=== PATIENT | female | born 1970 | race Caucasian/White ===

== ENCOUNTER 2020-05-02 13:57 | Inpatient (IN) | payer MEDICARE, MEDICAID ==
[~2020-05-02] VITALS: Ht 165.1 cm; Wt 74.4 kg
--- NOTE | ~2020-05-02 | EEG ---
[address] [address] EEG STUDY REPORT Name: KAI PICKETT Room: [address] IN ..#: [id number] Admission: 05/02/20 Attend Phys: Fiorella Schulz MD Discharge: Date of : 68 Report #: [id number] THIS REPORT FOR: //name// CC: Fiorella Schulz [facility] Physician staff DATE OF SERVICE: 05/06/2020 This patient is being evaluated for the possibility of seizure. EEG was done by placing the electrode by standard 10/20 system of electrode placement. Both referential and sequential montages were used for recording. Background activity in this patient's EEG is about 5-6 Hz and 30 microvolt, The patient's photic stimulation is unremarkable. No active epileptiform activity was noticed. IMPRESSION: This is a severely abnormal EEG because it is disorganized and poorly formed. That is a nonspecific finding, which can occur with encephalopathy, effect of psychotropic medication, dementia, etc. However, no active epileptiform activity was noticed during this record. Thank you very much for this referral. By: [id number] Julien MD /nt
--- NOTE | ~2020-05-02 | CON ---
[address] [address] CONSULTATION Name: KAI PICKETT Room: [address] ADM IN M.R.#: [id number] Admission: 05/02/20 Attend Phys: Fiorella Schulz MD Discharge: Date of : 68 Report #: [id number] THIS REPORT FOR: //name// cc: Physician not on staff Physician not on staff ~ THIS REPORT FOR: //name// DATE OF SERVICE: 05/04/2020 HISTORY OF PRESENT ILLNESS: This is a 49-year-old female patient who is unable to provide any history. I initially talked to Dr. Schulz and reviewed the records. Subsequently, I talked to the durable power of workers compensation attorney who does not know the medical history, but she gave a number for the group insurance special agent and the nurses had that number and I was able to call and get some medical history from her. She has known this patient for 13 years. The patient apparently has intractable seizure disorder. She also has mental retardation, but it is not clear what the etiology is. She does not have a family and she is a state appointed a durable power of workers compensation attorney as I understand. She got 35 seizures last year. The seizures were where her eyes were rolled up and she will shake some in and she will become more confused and lethargic for rest of the day. She followed up with Dr. Rodriges, a neurologist at [place], [place], who recently retired. Neurology consultation was requested because initial impression was that the patient was on Topamax and she was not able to take the Topamax. When I talked to the supervisor channel process at a longterm she indicates that the patient is on a lot of medication. She confirmed that she is on all the seizure medications. She says that the patient take Dilantin 300 mg alternating with 400 mg. She takes Onfi 10 mg b.i.d. She takes lamotrigine 600 mg b.i.d., which is a pretty big dose. She takes Keppra 2000 mg p.o. b.i.d., which is again a pretty good dose. She take Topamax 300 mg b.i.d. She also takes lorazepam 1 mg t.i.d. on a regular basis. She confirmed it is not p.r.n. and it is on a regular basis. She got rectal Valium intermittently when she gets seizure. She is admitted with GI issues like ileus and she has a severe urinary tract infection. Her temperature is still running high, urinalysis as indicated more than 25 wbc. She has a prior history of mental retardation. She has recently a diagnosis of COVID and her seizure frequency has increased and she has been more lethargic. She also has hypoxemia. Thus the 14-point review of system I can get. PAST MEDICAL HISTORY: Positive for seizure and mental retardation. She also has ileus. FAMILY HISTORY: Unavailable. SOCIAL HISTORY: She lives in a longterm. [address] [address] CONSULTATION Name: KAI PICKETT Room: [address] IN [facility]#: [id number] Admission: 05/02/20 Attend Phys: Fiorella Schulz MD Discharge: Date of : 68 Report #: [id number] PHYSICAL EXAMINATION: Very limited. She did not open her eyes for me. She followed no commands for me. I could not look at the patient's fundus, I could not elicit any reflex and she did not move anything. There is no meningeal sign in this patient. There are no carotid bruits. Blood pressure is 153/82, respirations 21, pulse is 83, temperature is 102. LABORATORY DATA: White count is normal. GFR is 131. IMPRESSION: Multiple things need to be addressed in this patient. She is on numerous seizure medication and her seizure regimen has to be simplified. That needs to be done as an outpatient by her neurologist because changing in acute stage of illness is not a very good thing to do. The problem is many of those medications does not come in p.o. form. If Dobhoff can be put in then that will be desirable part to do. I will suggest talking to the GI and if they allow a Dobbhoff tube and medication by Dobbhoff, the best will be to put Dobbhoff until she is able to swallow. She is on so much medication that the best will be to do that because only few of them can be give IV. But her anticonvulsant polypharmacy need to be simplified and I will suggest that she sees an epileptologist after that. Presently, there is no sign for meningeal infection, but that she needs to be watched closely. 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 I will suggest checking a CT scan sometime to make sure no pathology has appeared. I spent about 50 minutes of time taking care of this patient and majority was spent coordinating her care and I talked to multiple professionals and other members including group homes to coordinate the care. By: 1401 [id number] Julien MD /lashell
--- NOTE | ~2020-05-02 | EMS ---
[place] [address] EMS Patient Care Report Name: KAI PICKETT Room: [address] IN ..#: [id number] Admission: 05/02/20 Attend Phys: Fiorella Schulz MD Discharge: Date of : 68 Report #: [id number] THIS REPORT FOR: //name// Report Transmitted: 05/02/2020 21:47 EMS Care Summary [facility] [id number] @ 05/02/2020 12:41 Incident [address] [place] [address] Patient KAI PICKETT Female, 49 Years 1970 Patient [address] [place] [address] Patient History Seizures,Pervasive Developmental Disorder, Patient Allergies Iodine, Patient Medications Other, Vitamin B12, Vitamin D, Ativan, Fosamax, Levothyroxine, Dilantin, Rehana, Keppra, Aspirin, Lamictal, Tylenol, Diazepam, Nystatin, Risperdal, Chief Complaint No verbal complaints, patient is lethargic Disposition Transported No Lights/[place] Dis[place] Reason Altered Mental Status Transported To [facility] Narrative Dispatched Med Unit 1, emergency response for COVID 19 positive patient that is lethargic and [place] [address] EMS Patient Care Report Name: KAI PICKETT Room: [address] IN [facility]#: [id number] Admission: 05/02/20 Attend Phys: Fiorella Schulz MD Discharge: Date of : 68 Report #: [id number] Chief Complaint: This 48 year old female patient presents conscious and alert to loud verbal and firm touching stimuli. Patient is usually very active and verbal. Patient was found today to be lethargic, difficult to arouse, and displaying decreased oxygen saturations per staff. Patient is in well kept room with several staff member present. Full COVID PPE in use by staff and by EMS. History of Present Illness: Patient is a resident at a local [facility] assisted home. Patient has severe developmental and cognitive disabilities. Staff reports that the patient is usually very active and mobile in her wheel chair. She has been increasingly lethargic today with inability to get typical arousal from her. She also was reported to have low oxygen saturation (88%). She has tested positive for the pryor-virus as the other two residents and a staff member. She has reported to have a cough over the last several days but no report fever. It is uncertain if smell and taste has been affected. Assessment: Initial Exam: Airway is patent. Breathing is spontaneous with no evident dyspnea. CBBS, no wheeze or rhonchi appreciated. Circulation is strong and regular. Skin is warm, dry, pale. Dry mucosa. Patient is lethargic, responds to movement and loud verbal. Patient displays no evident life threats. Secondary Exam: As noted in ASSESSMENT SECTION. Reason for ambulance transport: Patient requires transport for care of hypoxemia and related COVID-19 concerns. Treatment: Assessment was provided : Patient was transferred to wheel chair and then out to front room to load onto the cot. Patient was secured to cot and removed to ambulance. Oxygen was placed using capnographic cannula. EKG placed showing NSR. IV established 20g, left forearm 500 ml LR infused over transport time. Blood sugar obtained. Report provided in advance. Summary: Patient tolerated trip well, she became more verbal, asking questions and making simple statements like she was "hungry." She remained cooperative enroute and displayed no evidence of distress. Patient continued to wear oxygen and a surgical mask and displayed saturation levels between 95% and 98% on 3lpm. Waveforms were non-obstructive. Patient was released to ED without delay or incident. Report provided in person. END OF REPORT. Initial Vitals @13:15P: 88,R: 20,BP: 130/72,GCS: 13,Temp: 98.7F,Glucose: 90,SpO2: 93,Revised Trauma: 12,MD Suspected: false @12:59P: 84,R: 20,BP: 136/70,GCS: 14,EtCO2: 39,SpO2: 97,Revised Trauma: 12,MD Suspected: [place] [address] EMS Patient Care Report Name: KAI PICKETT Room: [address] ADM IN M.R.#: [id number] Admission: 05/02/20 Attend Phys: Fiorella Schulz MD Discharge: Date of : 68 Report #: [id number] @13:30R: 20,BP: 126/77,GCS: 14,EtCO2: 38,SpO2: 97,Revised Trauma: 12,MD Suspected: false Assessments @12:51MENTAL:No Abnormalities,SKIN:Pale,HEENT:Eyes: Left Pupil: 3-mm,Eyes: Right Pupil: 3-mm,Head/Face: No Abnormalities,Neck/Airway: No Abnormalities,LUNG SOUNDS:General: Other,Right Upper: Distension,Left Upper: Distension,Left Lower: Distension,Right Lower: Distension,ABDOMEN:General: Other,Right Upper: Distension,Left Upper: Distension,Left Lower: Distension,Right Lower: Distension,PELVIS//GI:EXTREMITIES:Capillary Refill: Left Upper: < 2 Sec,Left Arm: No Abnormalities,Right Arm: No Abnormalities,Left Leg: No Abnormalities,Right Leg: No Abnormalities,PULSE:Radial: 2+ Normal,NEURO:No Abnormalities, Impression COVID-19 - Confirmed by testing Procedures @12:52ALS Assessment@12:59Surgical Mask on PatientResponse: Unchanged@13:05Lactated Ringers 500cc (20 ga) Site: Forearm-LeftResponse: UnchangedSucceeded@12:573-Lead ECGResponse: UnchangedSucceeded Timeline 12:41,Call Received 12:41,Dispatched 12:45,En Route 12:49,On Scene 12:51,At Patient 12:52,ALS Assessment, 12:57,3-Lead ECG,Response: UnchangedSucceeded, 12:59,Surgical Mask on Patient,Response: Unchanged 12:59,BP: 136/70 M,PULSE: 84,RR: 20 R,SPO2: 97 Ox,ETCO2: 39 ,BG: ,PAIN: ,GCS: 14, 13:05,Lactated Ringers 500cc 20 ga Site: Forearm-Left,Response: UnchangedSucceeded, 13:10,Depart Scene 13:15,BP: 130/72 M,PULSE: 88,RR: 20 R,SPO2: 93 Ox,ETCO2: ,B,PAIN: ,GCS: 13, 13:30,BP: 126/77 M,PULSE: ,RR: 20 R,SPO2: 97 Ox,ETCO2: 38 ,BG: ,PAIN: ,GCS: 14, 13:49,At Destination 14:57,Call Closed Disclaimer v1.1 Copyright 2020 [employer] This EMS Care Summary contains data elements from the applicable legal record (which may be displayed differently). It [place] [address] EMS Patient Care Report Name: KAI PICKETT Room: [address] IN [facility]#: [id number] Admission: 05/02/20 Attend Phys: Fiorella Schulz MD Discharge: Date of : 68 Report #: [id number] information for the following purposes: continuity of care, clinical quality, and state data reporting. The complete legal record is available to ED staff and administrators of the receiving hospital in [employer]'s Patient Tracker. All data is provided "as is."
--- NOTE | ~2020-05-02 | CON ---
[address] [address] CONSULTATION Name: KAI PICKETT Room: [address] IN M.R.#: [id number] Admission: 05/02/20 Attend Phys: Fiorella Schulz MD Discharge: Date of : 68 Report #: [id number] THIS REPORT FOR: //name// cc: Physician not on staff Physician not on staff ~ THIS REPORT FOR: //name// CC: Fiorella [place] Physician staff DICTATED BY: Taylor Cotto [facility] DATE OF SERVICE: 05/04/2020 PRIMARY CARE PHYSICIAN: Unknown. Please note at the time of this dictation, the patient was seen and physically examined by myself. REASON FOR CONSULTATION: Ileus and constipation. HISTORY OF PRESENT ILLNESS: This is a 49-year-old female who is in a current nursing home that needs full assistance with her ADLs on a daily basis. She does have baseline intellectual impairment. She does not ambulate on her own. She uses a wheelchair most of the time. She is nonverbal. Apparently, she was found to be complaining of some shortness of air and prompted them to call EMS for further evaluation. The patient was tested positive for COVID and she is in isolation, unable to get any past medical history except that she does take oral intake very poorly and most of her pills are crushed and she has to be asked to drink, she does not initiate any of that on her own. ALLERGIES: CONTRAST DYE AND IODINE. MEDICATIONS: From facility is topiramate, calcium, Risperdal, alendronate, aspirin, fexofenadine, levothyroxine, Linzess, vitamin B12, Fleet's enema, Ativan, lorazepam, and Tylenol. PAST MEDICAL HISTORY: Seizure disorder, history of choking, she is disabled and mentally challenged. PAST SURGICAL HISTORY: Negative. FAMILY HISTORY: Noncontributory. SOCIAL HISTORY: She lives in a nursing home and needs a 24[place] [address] CONSULTATION Name: KAI PICKETT Room: [address] IN [facility].#: [id number] Admission: 05/02/20 Attend Phys: Fiorella Schulz MD Discharge: Date of : 68 Report #: [id number] Denies any alcohol, tobacco or illegal drug use. REVIEW OF SYSTEMS: Twelve-point review of system is noted from the chart. PHYSICAL EXAMINATION: VITAL SIGNS: Temperature 37.3, pulse 82, respirations 18, blood pressure 134/80. HEART: Regular rate and rhythm. LUNGS: Diminished bilaterally. ABDOMEN: Soft, positive bowel sounds in all 4 quadrants with no masses or tenderness noted. NEUROLOGIC: The patient does not respond to verbal stimulation or painful stimulation, kept her eyes closed throughout the entire exam. RADIOLOGICAL DATA: Abdominal x-ray showed diffuse moderate ileus. CT scan shows prominent distention of the colon with air and fluid extending throughout the colon and into the rectum measuring up to 5.5 cm in size without any definite wall thickening. IMPRESSION: 1. Ileus. 2. Constipation. 3. Seizure disorder. 4. Shortness of air. 5. Positive for COVID. 6. Intellectual impairment. PLAN: 1. Continue her Dulcolax suppositories daily. 2. Continue her Reglan 5 mg a.c. and at bedtime. 3. We will add some MiraLax b.i.d. 4. Abdominal x-ray in a.m. 5. Further recommendations to be made after Dr. Moya sees the patient later today. Thank you for allowing us to participate in this patient's care. Please do not hesitate to call with any questions in regard to this consult. By: [id number] Moya MD /nt
[2020-05-02 14:00] VITALS: BP 114/62
[2020-05-02] MEDS ORDERED: CALCIUM500 M1 PO (14:13)
[2020-05-02] MEDS ORDERED: TOPAMAX100 MG PO (14:13)
[2020-05-02] MEDS ORDERED: FLEET ENEMA133 ML RECTAL (14:14)
[2020-05-02] MEDS ORDERED: ATIVAN1 M1 PO (14:14)
[2020-05-02] MEDS ORDERED: LORAZEPAM 2MG TA2 M1 PO (14:15)
[2020-05-02] MEDS ORDERED: RISPERDAL 1 MG T1 MG PO (14:15)
[2020-05-02] MEDS ORDERED: TYLENOL EXTRA500 MG PO (14:15)
[2020-05-02] MEDS ORDERED: ALLER-EASE180 MG PO (14:16)
[2020-05-02] MEDS ORDERED: ASA81BEC PO (14:16)
[2020-05-02] MEDS ORDERED: LEVO-T100 MCG PO (14:16)
[2020-05-02] MEDS ORDERED: BINOSTO70 MG PO (14:16)
[2020-05-02] MEDS ORDERED: LINZESS290 MCG PO (14:17)
[2020-05-02] MEDS ORDERED: VITAMIN B125000 MCG PO (14:17)
[2020-05-02 15:08] LABS: BE -3.6 mmol/L (-2 to +3); PCO2 39.8 mmHg (35.0-45.0); PO2 70.7 mmHg (75.0-100.0); pH 7.353 (7.340-7.450)
[2020-05-02 15:11] LABS: ABSOLUTE EOSINOPHILS 0.1 thou/uL (0.0-0.7); ABSOLUTE LYMPHOCYTES 1.7 thou/uL (0.8-5.3); ABSOLUTE MONOCYTES 0.8 thou/uL (0.0-1.2); ABSOLUTE NEUTROPHILS 2.9 thou/uL (1.6-8.1); BASOPHILS 0.4 %; EOSINOPHILS 1.2 %; HEMATOCRIT 36.4 % (37.0-47.0); LYMPHOCYTES 30.5 %; MCH 32.5 pg (26.0-34.0); MCHC 32.9 g/dL (28.0-37.0); MCV 98.8 fL (80.0-100.0); MONOCYTES 14.2 %; MPV 6.3 fl. (7.2-11.1); NUCLEATED RBCS 0 /100WBC; PLATELET COUNT* 281 thou/uL (150-400); POLYS 53.7 %; RBC 3.68 mil/uL (4.20-5.00); RDW-CV 13.7 % (10.5-14.5); WBC 5.5 thou/uL (4.0-11.0)
[2020-05-02 15:19] LABS: CALCIUM 7.7 mg/dL (8.5-10.1); CREATININE 0.7 mg/dL (0.6-1.3); POTASSIUM 3.5 mmol/L (3.5-5.1)
[2020-05-02 15:23] LABS: MAGNESIUM 1.9 mg/dL (1.8-2.4); TOTAL BILIRUBIN 0.1 mg/dL (<0.1-1.0); TOTAL PROTEIN 7.8 g/dL (6.4-8.2)
[2020-05-02 15:40] LABS: URINE BILIRUBIN NEGATIVE (Negative); URINE BLOOD TRACE (Negative); URINE CLARITY CLEAR; URINE COLOR YELLOW; URINE GLUCOSE-RANDOM NEGATIVE (Negative); URINE KETONES NEGATIVE (Negative); URINE NITRITE-REFLEX NEGATIVE (Negative); URINE PROTEIN NEGATIVE (Negative); URINE SPECIFIC GRAVITY 1.025 (1.005-1.030); URINE UROBILINOGEN 0.2 E.U./dl (0.2-1.0)
[2020-05-02 15:41] LABS: URINE LEUKOCYTES-REFLEX 3+ (Negative)
[2020-05-02 15:46] LABS: URINE WBC-REFLEX >25 Many /HPF (0-5); WBC CLUMPS Few (None Seen)
[2020-05-02 15:47] LABS: BACTERIA-REFLEX >30 Many /HPF (None Seen); CASTS None Seen /LPF (None Seen); CRYSTALS None Seen /LPF (None Seen); MUCUS None Seen strn/LPF (None Seen); SQUAMOUS 4-10 Moderate /LPF (0-3); URINE RBC 0-2 Rare /HPF (0-2)
[2020-05-02 20:06] VITALS: BP 144/74
[2020-05-02 21:00] VITALS: BP 126/72
[2020-05-03] VITALS: BP 106/63
[2020-05-03 04:00] VITALS: BP 151/87
[2020-05-03 04:17] LABS: HEMATOCRIT 36.9 % (37.0-47.0); HEMOGLOBIN 12.1 gm/dL (12.0-15.0); MCH 32.3 pg (26.0-34.0); MCHC 32.8 g/dL (28.0-37.0); MCV 98.4 fL (80.0-100.0); MPV 6.3 fl. (7.2-11.1); RBC 3.74 mil/uL (4.20-5.00); RDW-CV 13.4 % (10.5-14.5); WBC 5.7 thou/uL (4.0-11.0)
[2020-05-03 04:30] LABS: ALBUMIN 2.9 g/dL (3.4-5.0); CALCIUM 8.7 mg/dL (8.5-10.1); CREATININE 0.8 mg/dL (0.6-1.3); MAGNESIUM 2.1 mg/dL (1.8-2.4); TOTAL BILIRUBIN 0.1 mg/dL (<0.1-1.0); TOTAL PROTEIN 7.9 g/dL (6.4-8.2)
[2020-05-03 04:38] LABS: POTASSIUM 4.7 mmol/L (3.5-5.1)
[2020-05-03 13:34] VITALS: BP 96/55
[2020-05-03 17:14] VITALS: BP 148/58
[2020-05-03 20:00] VITALS: BP 101/63
[2020-05-04 00:42] VITALS: BP 100/56
[2020-05-04 04:20] VITALS: BP 112/60
[2020-05-04 08:00] VITALS: BP 134/80
[2020-05-04 09:48] LABS: HEMATOCRIT 37.7 % (37.0-47.0); HEMOGLOBIN 12.5 gm/dL (12.0-15.0); MCH 32.1 pg (26.0-34.0); MCHC 33.3 g/dL (28.0-37.0); MCV 96.5 fL (80.0-100.0); MPV 6.1 fl. (7.2-11.1); RBC 3.91 mil/uL (4.20-5.00); RDW-CV 13.5 % (10.5-14.5); WBC 5.8 thou/uL (4.0-11.0)
[2020-05-04 10:00] LABS: ALBUMIN 2.9 g/dL (3.4-5.0); CALCIUM 7.9 mg/dL (8.5-10.1); CREATININE 0.5 mg/dL (0.6-1.3); MAGNESIUM 1.7 mg/dL (1.8-2.4); POTASSIUM 3.2 mmol/L (3.5-5.1); TOTAL BILIRUBIN 0.3 mg/dL (<0.1-1.0); TOTAL PROTEIN 7.8 g/dL (6.4-8.2)
[2020-05-04 13:30] VITALS: BP 153/82
[2020-05-04] MEDS ORDERED: GLYCOPYRROLATE 11 MG PO (17:00)
[2020-05-04] MEDS ORDERED: BIOFREEZE118 ML TOP (17:04)
[2020-05-04] MEDS ORDERED: LAMOTRIGINE250 MG PO (17:05)
[2020-05-04] MEDS ORDERED: KEPPRA100 MG/1 M PO (17:07)
[2020-05-04] MEDS ORDERED: ONFI10 MG PO (17:17)
[2020-05-04] MEDS ORDERED: FISH OIL 1,0001 EAC9 PO (17:17)
[2020-05-04] MEDS ORDERED: MIRALAX119 GM PO (17:18)
[2020-05-04] MEDS ORDERED: PHENYTOIN SODI100 M3 PO ×3 (17:20→18:04)
[2020-05-04] MEDS ORDERED: LAMOTRIGINE150 MG PO (17:39)
[2020-05-04] MEDS ORDERED: VITAMIN D21250 MC1 PO (17:59)
[2020-05-04 20:00] VITALS: BP 143/82
[2020-05-05] VITALS: BP 117/84
[2020-05-05 07:03] LABS: HEMATOCRIT 35.2 % (37.0-47.0); HEMOGLOBIN 11.7 gm/dL (12.0-15.0); MCH 32.3 pg (26.0-34.0); MCHC 33.4 g/dL (28.0-37.0); MCV 96.8 fL (80.0-100.0); MPV 6.4 fl. (7.2-11.1); RBC 3.63 mil/uL (4.20-5.00); RDW-CV 13.4 % (10.5-14.5)
[2020-05-05 07:06] LABS: ALBUMIN 2.8 g/dL (3.4-5.0); CREATININE 0.5 mg/dL (0.6-1.3); POTASSIUM 3.3 mmol/L (3.5-5.1); TOTAL BILIRUBIN 0.3 mg/dL (<0.1-1.0); TOTAL PROTEIN 7.5 g/dL (6.4-8.2)
[2020-05-05 08:00] VITALS: BP 91/56
[2020-05-05 12:00] VITALS: BP 104/71
[2020-05-05 16:00] VITALS: BP 118/83
[2020-05-05 20:00] VITALS: BP 122/96
[2020-05-06] VITALS: BP 131/83
[2020-05-06 04:00] VITALS: BP 92/52
[2020-05-06 08:00] VITALS: BP 85/53
[2020-05-06 12:40] VITALS: BP 137/69
[2020-05-06 20:00] VITALS: BP 104/66
[2020-05-07 00:45] VITALS: BP 100/67
[2020-05-07 04:55] VITALS: BP 108/60
[2020-05-07 08:30] VITALS: BP 100/50
[2020-05-07 16:18] VITALS: BP 116/77
[2020-05-07 20:20] VITALS: BP 125/73
[2020-05-08] VITALS: BP 112/63
[2020-05-08 04:00] VITALS: BP 139/78
[2020-05-08 08:30] VITALS: BP 116/71
[2020-05-08 12:00] VITALS: BP 133/66
[2020-05-08 16:00] VITALS: BP 129/72
[2020-05-08 20:20] VITALS: BP 121/65
[2020-05-09] VITALS (7 sets, daily range): BP systolic 85–141; BP diastolic 55–77
[2020-05-09] MEDS ORDERED: CEFDINIR300 MG PO (13:06)
[2020-05-09] MEDS ORDERED: AZITHROMYCIN500 MG PO (13:07)
[2020-05-09] MEDS ORDERED: VITAMIN C500 M1 PO (13:11)
[2020-05-09] MEDS ORDERED: FOLIXAPURE5000 UNIT PO (13:11)
== END 2020-05-09 18:45 | disposition home or self-care (01) | DRG 177 ==
LOC: M.ERS 13:57 → M.TBA-ER 16:32 → M.2W 16:32
PROVIDERS: Personal Emergency Response Attendant; ADMIT Internal Medicine; ATTEND Internal Medicine
DX: U07.1 COVID-19 (principal); J12.89 Other viral pneumonia; J96.01 Acute respiratory failure with hypoxia; R65.11 Systemic inflammatory response syndrome (SIRS) of non-infectious origin with acute organ dysfunction; N39.0 Urinary tract infection, site not specified; K56.7 Ileus, unspecified; B96.89 Other specified bacterial agents as the cause of diseases classified elsewhere; G40.909 Epilepsy, unspecified, not intractable, without status epilepticus; F79 Unspecified intellectual disabilities; K59.00 Constipation, unspecified; G62.9 Polyneuropathy, unspecified; Z23 Encounter for immunization; Z91.048 Other nonmedicinal substance allergy status; Z91.041 Radiographic dye allergy status; Z79.82 Long term (current) use of aspirin; Z79.899 Other long term (current) drug therapy